=== PATIENT | male | born 1975 | race Caucasian/White ===

== ENCOUNTER 2018-12-04 18:03 | Emergency (ER) | payer OTHER ==
[~2018-12-04] VITALS: Ht 182.9 cm; Wt 105.3 kg
[2018-12-04 19:01] VITALS: BP 133/77
[2018-12-04] MEDS ORDERED: CYCL10TA PO (19:45)
[2018-12-04] MEDS ORDERED: KETOROLAC 30 MG/ML VIAL (J1885) IM ONE (19:45)
== END 2018-12-04 20:10 | disposition home or self-care (01) ==
LOC: M ED 18:03
DX: M62.830 Muscle spasm of back (principal)
CPT/HCPCS: 96372; 99283; J1885